=== PATIENT | male | born 1960 | race African-American/Black ===

== ENCOUNTER 2019-04-02 04:57 | Emergency (ER) | payer SELFPAY ==
[~2019-04-02] VITALS: Ht 175.3 cm; Wt 83.0 kg
[2019-04-02] MEDS ORDERED: AMLODIPINE 5MG TABLET PO ONE (06:30)
[2019-04-02 06:33] LABS: BASOPHILS % 0.6 % (0.0-2.0); EOSINOPHILS % 2.7 % (0.0-5.0); HEMATOCRIT. 45.2 % (42.0-52.0); HEMOGLOBIN. 15.6 g/dL (14.0-18.0); LYMPHOCYTES % 28.2 % (20.0-50.0); MEAN CORPUSCULAR HEMOGLOBIN 32.5 pg (28.0-32.0); MEAN CORPUSCULAR VOLUME 94.3 fL (80.0-94.0); MEAN PLATELET VOLUME 8.4 fl (7.4-10.4); NEUTROPHILS % 59.5 % (40.0-76.0); PLATELET 281 x1000/uL (130-400); RED CELL DISTRIBUTION WIDTH 12.8 % (11.6-14.6)
[2019-04-02 06:44] LABS: CHLORIDE 107 mEq/L (98-107)
[2019-04-02 07:04] LABS: CLARITY URINE CLEAR (CLEAR); COLOR URINE YELLOW (YELLOW); KETONES URINE NEGATIVE (NEGATIVE); LEUKOCYTE ESTERASE URINE 1+ (NEGATIVE); NITRITE URINE NEGATIVE (NEGATIVE); OCCULT BLOOD URINE 1+ (NEGATIVE); PROTEIN URINE TRACE (NEGATIVE); SPECIFIC GRAVITY URINE 1.022 (1.005-1.030); UROBILINOGEN URINE 0.2 E.U./dL (0.2-1.0)
[2019-04-02] MEDS ORDERED: HYDRALAZINE HCL 100MG TABLET PO ONE (08:00)
[2019-04-02 11:30] VITALS: BP 199/82
== END 2019-04-02 11:50 | disposition home or self-care (01) ==
LOC: ER 04:57
DX: I16.0 Hypertensive urgency (principal); R31.9 Hematuria, unspecified; N30.90 Cystitis, unspecified without hematuria; I10 Essential (primary) hypertension; Z86.73 Personal history of transient ischemic attack (TIA), and cerebral infarction without residual deficits; Z98.890 Other specified postprocedural states
CPT/HCPCS: 36415; 74176; 80053; 81003; 85025; 99284